=== PATIENT | male | born 1990 | race Hispanic/Latino ===

== ENCOUNTER 2023-05-02 10:14 | Emergency (ER) | payer OTHER ==
[~2023-05-02] VITALS: Ht 182.9 cm; Wt 86.2 kg
[2023-05-02 10:20] VITALS: BP 130/86; PULSE 105; RESP 16
[2023-05-02 12:31] LABS: SARS-CoV-2, RNA, NAAT NEGATIVE SARS CoV-2 (NEGATIVE)
[2023-05-02 12:32] LABS: RAPID GROUP A STREP positive (NEGATIVE)
[2023-05-02 12:36] LABS: INFLUENZA TYPE A Negative For Type A (NEGATIVE)
[2023-05-02 12:37] LABS: INFLUENZA TYPE B Positive For Type B (NEGATIVE)
[2023-05-02] MEDS ORDERED: AMOX500C2 PO (12:42)
[2023-05-02] MEDS ORDERED: PENI250T4 PO (12:44)
[2023-05-02] MEDS ORDERED: CEFTRIAXONE 1G VIAL IM ONE (13:00)
== END 2023-05-02 13:59 | disposition home or self-care (01) ==
LOC: EDH 10:14
DX: J02.0 Streptococcal pharyngitis (principal); R50.9 Fever, unspecified; M79.10 Myalgia, unspecified site; E11.9 Type 2 diabetes mellitus without complications; I10 Essential (primary) hypertension; Z20.822 Contact with and (suspected) exposure to COVID-19
CPT/HCPCS: 99283; 87635; 87880; 87804 ×2; 96372; C9803; J0696